=== PATIENT | male | born 1975 | race African-American/Black ===

== ENCOUNTER 2019-07-13 21:09 | Emergency (ER) | payer SELFPAY ==
--- NOTE | 2019-07-13 21:24 | PDOC ---
Rapid Medical Evaluation Time Seen by Provider: 07/13/19 21:24 Medical Evaluation: Allergies Allergy/AdvReac Type Severity Reaction Status Date / Time No Known Drug Allergies Allergy Verified 01/20/15 10:17 07/13/19 21:24 I have performed a brief in-person evaluation of this patient. The patient presents with a chief complaint of: Bleeding from urethra ~20 min ago w/ clots. Low grade fever x 2 days, highest temp 101F per . Denies dysuria, flank pain, n/v. Not on blood thinners. No h/o prior condition. H/o ? congenital kidney disease, s/p L nephrectomy in 2009, ESRD on HD via LUE fistula (M/W/F) Pertinent physical exam findings: stable I have ordered the following:labs/ua The patient will proceed to the ED for further evaluation. Discharge Disposition - Diagnosis Penile bleeding - Referrals - Patient Instructions - Post Discharge Activity
[2019-07-13 21:32] VITALS: TEMP 99.1; BMI 42.0
[2019-07-13 22:38] LABS: URINE APPEARANCE Cloudy; URINE BILIRUBIN 2+ (NEGATIVE); URINE COLOR Orange; URINE GLUCOSE (UA) Trace (NEGATIVE); URINE KETONE 1+ (NEGATIVE); URINE LEUK ESTERASE 3+ (NEGATIVE); URINE NITRITE Positive (NEGATIVE); URINE PROTEIN 3+ (NEGATIVE)
[2019-07-13 22:46] LABS: EOS % 3.4 % (0-4.5); HEMATOCRIT 31.7 % (35.4-49); HEMOGLOBIN 10.5 GM/dL (11.7-16.9); LYMPH % 26.9 % (8-40); MCH 29.1 pg (25.7-33.7); MCHC 33.1 g/dl (32.0-35.9); MEAN CELL VOLUME 87.7 fl (80-96); MONO % 15.8 % (3.8-10.2); NEUT % 52.9 % (42.8-82.8); PLATELET COUNT 251 K/MM3 (134-434); RBC 3.61 M/mm3 (4.00-5.60); RDW 14.7 % (11.9-15.9); WHITE BLOOD COUNT 5.9 K/mm3 (4.0-10.0)
[2019-07-13 22:54] LABS: EPI CELLS 1.7 /HPF (0-5/HPF); HYALINE CASTS 15.52 /lpf (0-8); URINE BACTERIA 13.9 /hpf (NEGATIVE); URINE WBC 546.3 /hpf (0-5); YEAST NEGATIVE (NEGATIVE)
[2019-07-13 23:25] LABS: ALBUMIN 3.8 g/dl (3.4-5.0); BILIRUBIN,TOTAL 0.4 mg/dL (0.2-1); BLOOD UREA NITROGEN 33.9 mg/dL (7-18); CALCIUM 9.3 mg/dL (8.5-10.1); CREATININE 6.2 mg/dL (0.55-1.3); POTASSIUM 4.4 mmol/L (3.5-5.1)
--- NOTE | 2019-07-13 23:50 | PDOC ---
History of Present Illness - General Chief Complaint: Hematuria Stated Complaint: BLEEDING Time Seen by Provider: 07/13/19 21:24 - History of Present Illness Initial Comments: 07/14/19 00:44 44 year old man with a history of ESRD on HD via LUE fistula () and L nephrectomy (2009) who presents with blood from the urethra with clots that occurred spontaneously while standing in the kitchen at approx 2130. The patient reports that he had a temp of 101F 2-3 days ago. THe patinet denies any dysuria. He denies any constipation, but notes some loose stool. He also admits to cough for 1-2 weeks. He has no other complaints and states that this has never happened to him before. He denies any recent instrumentation. ROS GENERAL/CONSTITUTIONAL: + fever or chills. No weakness. HEAD, EYES, EARS, NOSE AND THROAT: No change in vision. No ear pain or discharge. No sore throat. CARDIOVASCULAR: No chest pain or shortness of breath RESPIRATORY: No cough, wheezing, or hemoptysis. GASTROINTESTINAL: No nausea, vomiting, diarrhea or constipation. GENITOURINARY: No dysuria, frequency, + change in urination. MUSCULOSKELETAL: No joint or muscle swelling or pain. No neck or back pain. SKIN: No rash NEUROLOGIC: No headache, vertigo, loss of consciousness, or change in strength/ sensation. PE GENERAL: Awake, alert, and fully oriented, in no acute distress HEAD: No signs of trauma, normocephalic, atraumatic EYES: EOMI, sclera anicteric, conjunctiva clear ENT: oropharynx clear without exudates. Moist mucosa NECK: Normal ROM, supple LUNGS: No distress, speaks full sentences, clear to auscultation bilaterally HEART: Regular rate and rhythm, normal S1 and S2, no murmurs, rubs or gallops, peripheral pulses normal and equal bilaterally. ABDOMEN: Soft, nontender, normoactive bowel sounds. No guarding, no rebound. No masses EXTREMITIES : Normal inspection, Normal range of motion, no edema. No clubbing or cyanosis. NEUROLOGICAL: Cranial nerves II through XII grossly intact. Normal speech, no focal sensorimotor deficits SKIN: Warm, Dry, normal turgor, no rashes or lesions noted MDM DDX including but not limited to: hemorrhagic cysitits patient does not endorse urethral trauma consider bladder ca W/U: - cbc, cmp ua ED Course: patient with uti dose bactrim send urology f/u strict return precuations Shante Payne, PGY2 Emergency Medicine Past History - Past Medical History Allergies/Adverse Reactions: Allergies Allergy/AdvReac Type Severity Reaction Status Date / Time No Known Drug Allergies Allergy Verified 07/13/19 21:25 Home Medications: Ambulatory Orders Amlodipine Besylate [Norvasc -] 10 mg PO HS 09/16/14 Ergocalciferol (Vitamin D2) [Vitamin D2] 50,000 unit PO WEEKLY 09/16/14 Sodium Bicarbonate - 650 mg PO BID 09/16/14 oxyCODONE HCL [Roxicodone -] 5 mg PO Q6H #20 tablet 01/20/15 Sulfamethoxazole/Trimethoprim [Bactrim Ds -] 1 tab PO BID 3 Days #6 tablet 07/14 COPD: No Disorders: Yes (ESRD M,W, F AVF TO [facility]) HTN: Yes - Immunization History Immunization Up to Date: Yes - Suicide/Smoking/Psychosocial Hx Smoking History: Never smoked Have you smoked in the past 12 months: No Information on smoking cessation initiated: No Hx Alcohol Use: No Drug/Substance Use Hx: No Substance Use Type: None *Physical Exam - Vital Signs Last Vital Signs Temp Pulse Resp BP Pulse Ox 99.1 F 93 H 16 134/83 97 07/13/19 21:25 07/13/19 21:25 07/13/19 21:25 07/13/19 21:25 07/13/19 21:25 ED Treatment Course - LABORATORY CBC & Chemistry Diagram: 07/13/19 21:42 07/13/19 21:42 - ADDITIONAL ORDERS Additional order review: Laboratory Results 07/13/19 07/13/19 21:42 21:42 Sodium 136 Potassium 4.4 Chloride 98 Carbon Dioxide 30 Anion Gap 8 BUN 33.9 H Creatinine 6.2 H Est GFR (CKD-EPI)AfAm 11.55 Est GFR (CKD-EPI)NonAf 9.97 Random Glucose 94 Calcium 9.3 Total Bilirubin 0.4 AST 44 H ALT 58 Alkaline Phosphatase 154 H Total Protein 8.0 Albumin 3.8 Urine Color [place] Urine Appearance Cloudy Urine pH 7.0 Ur Specific [place] 1.020 Urine Protein 3+ H Urine Glucose (UA) Trace Urine Ketones 1+ H Urine Blood 3+ H Urine Nitrite Positive Urine Bilirubin 2+ H Urine Urobilinogen 2.0 Ur Leukocyte Esterase 3+ H Urine WBC (Auto) 546.3 Urine RBC (Auto) 5304.0 Urine Casts (Auto) 15.52 U Pathogenic Cast Auto Negative U Epithel Cells (Auto) 1.7 Urine Bacteria (Auto) 13.9 Urine Yeast (Auto) Negative 07/13/19 21:42 RBC 3.61 L MCV 87.7 MCHC 33.1 RDW 14.7 MPV 8.0 D Neutrophils % 52.9 Lymphocytes % 26.9 Monocytes % 15.8 H Eosinophils % 3.4 Basophils % 1.0 *DC/Admit/Observation/Transfer Diagnosis at time of Disposition: Penile bleeding - Discharge Dispostion Disposition: HOME Condition at time of disposition: Stable Decision to Admit order: No - Prescriptions Prescriptions: Sulfamethoxazole/Trimethoprim [Bactrim Ds -] 1 tab PO BID 3 Days #6 tablet - Referrals Referrals: Tan Duff MD [Primary Care Provider] - Ramon Lala MD [Staff Physician] - - Patient Instructions Printed Discharge Instructions: DI for Hemorrhagic Cystitis Additional Instructions: You were seen in the ED for complaints of blood from the urethra In the ED you were evaluated with labwork. Your results showed a urine infection with blood There does not appear to be an acute need for immediate hospitalization. You are advised to follow up with your Primary Care Physician within 1 week. You were given a referral to Urology and advised to follow up within 1 week. You were given a prescription for antibiotics for your urine infection to be taken as prescribed. Return to the ED immediately if you experience worsening bleeding, clots, burning with urination, fevers, nausea, vomiting or any other concerning symptoms. - Post Discharge Activity
[2019-07-14] MEDS ORDERED: SULFAMETHOXAZOLE/TRIMETHOPRIM 800MG/160MG D.S. TABLET PO ONE (00:15)
[2019-07-14] MEDS ORDERED: SULFAMETHOXAZOLE/TRIMETHOPRIM 800MG/160MG D.S. TABLET ONE (00:28)
--- NOTE | 2019-07-14 00:46 | PDOC ---
Attending Attestation - Resident Resident Name: Shante Payne - ED Attending Attestation I have performed the following: I have examined & evaluated the patient, The case was reviewed & discussed with the resident, I agree w/resident's findings & plan - HPI HPI: 07/14/19 00:40 44y/o M ESRD on M/W/F HD s/p dialysis today, h/o L nephrectomy ? 2/2 renal cysts presents with acute onset painless bleeding from urethra. has h/o recurring UTI, no recent symptoms but suddenly this evening while standing in kitchen had brb per urethra. no flank pain, no f/c/n/v. no recent instrumentation, is not aware of additional a/c given at HD today. bleeding resolved upon arrival in ED, had normal urine output in ED since then without pain. does not feel obstructed. no abd pain - Physicial Exam PE: 07/14/19 00:43 vss, T 99.1 well appearing, seated comfortably in chair, texting on phone s1s2 rrr, ctab L nephrectomy scar, abd benign without distended bladder, no R cvat LUE fistula with thrill - Medical Decision Making 07/14/19 00:44 44y/o M ESRD with gross hematuria/blood per urethra. no recent injury, not on a/ c. ? hemorrhagic cystitis, no evidence for renal etiology. labs, ua as noted and constistent with hemorrhagic cystitis. cx sent. will start on bactrim, passed TOV with normal UOP here. understands strict return criteria, will f/u with Dr. Lewis, will give referral
[2019-07-14 02:00] VITALS: BP 141/87; PULSE 87
== END 2019-07-14 01:40 | disposition home or self-care (01) ==
LOC: JER 21:09
DX: N50.9 Disorder of male genital organs, unspecified (principal); I10 Essential (primary) hypertension
CPT/HCPCS: 36415; 80053; 81003; 85025; 87086; 87491; 87591; 99283-25

== ENCOUNTER 2019-07-16 15:10 | Inpatient (IN) | payer OTHER | END 2019-07-22 18:53 | disposition home or self-care (01) | LOC: JERBED 16:42 → J5S 07-18 00:57 → JER 15:10 ==

== ENCOUNTER 2025-07-29 11:52 | Emergency (ER) | payer BC, OTHER ==
[2025-07-29 12:02] VITALS: BP 139/88; PULSE 92; RESP 18; TEMP 98.2; BMI 26.5
[2025-07-29] MEDS ORDERED: ACETAMINOPHEN 500 MG TABLET (FP) ONE (12:32)
[2025-07-29] MEDS: ACETAMINOPHEN 500 MG TABLET (FP) PO ONE (12:41)
== END 2025-07-29 13:05 | disposition home or self-care (01) ==
LOC: JERFT 11:52
DX: S70.11XA Contusion of right thigh, initial encounter (principal); W01.0XXA Fall on same level from slipping, tripping and stumbling without subsequent striking against object, initial encounter
CPT/HCPCS: 73552-TC-RT-FY; 99283-25